=== PATIENT | female | born 1965 | race Caucasian/White ===

== ENCOUNTER → 2016-11-15 | Day surgery (SDC) | payer OTHER ==
[~2016-11-15] VITALS: Ht 172.7 cm; Wt 123.9 kg
[2016-11-15] VITALS (13 sets, daily range): BP systolic 113–155; BP diastolic 63–85; PULSE 65–77; RESP 13–21; O2SAT 90–97
[~2016-11-15] MED LIST: ASEN10TA9 SL; CeFAZolin 2 Gm/50 mL D5W IV Premix IV ONE; CeFAZolin Inj 3 Gm/ D5W 50 mL Bag IV ONE; DIAZ5TAB3 PO; Dexamethasone 4 mg/mL Inj IVPUSH PRN; Dexamethasone 4 mg/mL Inj ONE; EPHEDrine Sulfate 50 mg/mL Inj IVPUSH PRN; FENO160T14 PO; HYDROcodone-APAP 5-325 mg Tablet PO PRN; KETO10TA PO; KETO30VI IJ; KETO60SY IM; LAMO150T2 PO; LEVO125T6 PO; Lactated Ringer's 1,000 ML IV ONE; Lactated Ringer's 1,000 ML IV SCH; Lactated Ringer's 500 ML IV PRN; MAGN500C16 PO; MetoCLOpramide 5 mg/mL 2 mL Inj IVPUSH PRN; OMEP40CA36 PO; OXYC-466 PO; Ondansetron 2 mg/mL 2 mL Inj IVPUSH PRN; Ondansetron 2 mg/mL 2 mL Inj ONE; PRAM0.252 PO; PROP10TA8 PO; Phenazopyridine 97.5 mg Tablet ONE; Phenylephrine 10,000 mCg/mL Inj IVPUSH PRN; Propofol 10,000 mCg/mL 20 mL Inj ONE; RIZA10TA28 PO; SIMV20TA4 PO; fentaNYL-PF 50 mCg/mL 2 mL Inj IVPUSH PRN; fentaNYL-PF 50 mCg/mL 2 mL Inj ONE
--- NOTE | 2016-11-15 12:39 | PCM.HPANE ---
Patient Data Surgeon Admitting Provider: Attending Provider:Patito Antoine MD Primary Care Physician:Jenna Dowling PA-C Other Provider:Jesús Meade Anesthesia Reason for Visit Left Kidney Stone Ht/WT & BMI Height (Feet): 5 Height (Inches): 8.00 Weight (Kilograms): 123.9 Body Mass Index 41.00 Allergies Coded Allergies: bupropion (Verified Allergy, Severe, Hives, 11/08/16) Past Anesthesia History Anesthesia History: Positive for:: Anesthesia Reactions (Difficult to wake up from), Fam Anesthesia Reaction (mother has difficulty waking up as well ), Denies:: Abnormal Airway, Difficult Intubation Diabetes History Hx Diabetes?: No MRSA MRSA: No Medications Hypertension Medication: No Home Meds Incl Beta Jorge: Yes Date Beta Jorge Taken: Nov 14, 2016 Time Beta Jorge Taken: 1999 Reported Medications Simvastatin 20 Mg Jngebv02 Mg PO HS Ref 0 11/08/16 Asenapine (Saphris)10 Mg Tab.subl10 Mg SL DAILY 11/08/16 Rizatriptan ODT (Rizatriptan)10 Mg Pldjbj30 Mg PO Q2H PRN migraines not to qpmr7ew 30mg/24hrs 11/08/16 Propranolol HCl 10 Mg Aeozje53 Mg PO BID 90 Days Ref 0 11/08/16 oxyCODONE-Acetaminophen 10-325 mg 1 Each Tablet0.5-1 Tablet PO DAILY PRN For Pain Ref 0 11/08/16 Omeprazole 40 Mg Capsule.dr40 Mg PO DAILY Ref 0 11/08/16 Pramipexole Dihydrochloride (Mirapex)0.25 Mg Tablet0.75 Mg PO DAILY 11/08/16 Magnesium Oxide 500 Mg Izwkaos287 Mg PO DAILY 11/08/16 Levothyroxine 125 Mcg Pljhqg987 Mcg PO DAILY For Thyroid Replacement Ref 0 11/08/16 Lamotrigine 150 Mg Iwrybj234 Mg PO DAILY Ref 0 11/08/16 Ketorolac Tromethamine 10 Mg Fshgqc61 Mg PO Q8H PRN migraines 30 Days NTE 40mg/24hr 11/08/16 Fenofibrate 160 Mg Pftjgd752 Mg PO DAILY Ref 0 11/08/16 Diazepam 5 Mg Tablet5 Mg PO DAILY PRN For Anxiety Ref 0 11/08/16 Discontinued Reported Medications Ketorolac Tromethamine 60 Mg/2 Ml Syringe1-2 Ml IM ONCE PRN migraines up to 5 days total use 11/08/16 Ketorolac Tromethamine 30 Mg/1 Ml Vial1-2 Ml IJ ONCE PRN migraines up to 5 days total use 11/08/16 hydrOXYzine Hcl (HydrOXYzine Hcl)25 Mg Wjrivn92 Mg PO DAILY 09/03/[address] 20 Mg Tablet.dr20 Mg PO DAILY Ref 0 09/03/15 Ranitidine 300 Mg Gwxokzb539 Mg PO DAILY Ref 0 09/03/15 Rizatriptan ODT (Rizatriptan)5 Mg Tablet5 Mg PO 09/02/15 oxyCODONE-Acetaminophen 10-325 mg 1 Each Tablet1 Tablet PO DAILY PRN For Pain Ref 0 09/02/15 Ketorolac Tromethamine 10 Mg Nlzywh16 Mg PO 30 Days 09/02/15 Tramadol 50 Mg Afxwhk21 Mg PO Q6 PRN For Headache Ref 0 01/15/14 Topiramate (Topamax)25 Mg Clncqx49 Mg PO TID 30 Days Ref 0 01/15/14 Sumatriptan Succinate 100 Mg Mcadtn906 Mg PO PRN PRN For Headache 01/15/14 Diazepam 5 Mg Tablet5 Mg PO DAILY PRN For Anxiety #90 TABLET Ref 0 01/15/14 Levothyroxine 125 Mcg Uovvau179 Mcg PO DAILY For Thyroid Replacement #30 TABLET Ref 0 01/15/14 Simvastatin 20 Mg Aursxx74 Mg PO HS 30 Days Ref 0 01/15/14 Fenofibrate 160 Mg Suetti020 Mg PO DAILY 30 Days Ref 0 01/15/14 Lamotrigine 150 Mg Xxiqnj430 Mg PO DAILY #30 TABLET Ref 0 01/15/14 Asenapine (Saphris)10 Mg Tab.subl10 Mg SL DAILY 01/15/14 History History of ENT Problems?: Yes HEENT History: Positive for:: 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 ) Denies:: Abnormal Airway Cataracts Difficult Intubation Dysphagia Glaucoma Hearing Problem Sinus Problem Denture Type: None Teeth Condition: Within Normal Limits Hx of Heart Problems?: No Cardiovascular History: Denies:: Cardiac Surgery Chest Pain Congestive Heart Failure Edema Heart Murmur Hypertension Irregular Heartbeat Hx of Respiratory Problem?: No Respiratory History: Denies:: Asthma COPD Emphysema Oxygen Administration Pneumonia Pulmonary Embolism Tuberculosis Use of C-PAP Machine Hx Neurologic Problems?: Yes Neurological History: Positive for:: Headaches (hx of botox injections- q 12 weeks, last 2 mons ago) Denies:: CVA Dementia Dizziness Multiple Sclerosis Parkinson's Disease (benign essential tremors ) Seizures Hx of GI Problems?: Yes Hx of Problems?: Yes Genitourinary History: Positive for:: Kidney Stones (left stone current admission problem) Denies:: Urinary Tract Infection Female Hx: Denies:: Currently Problems with Breasts? Skin History: Denies:: History Skin Disorders? Pressure Ulcers Hx Musculoskeletal Problems?: Yes Musculoskeletal History: Denies:: Back Injury Fibromyalgia Joint Replacement Musculoskeletal Trauma Myasthenia Gravis Osteoarthritis Rheumatoid Arthritis Systemic Lupus Hx of Psycho/Social Problems?: Yes Psycho Social History: Positive for:: Anxiety Hx Depression Denies:: Suicide Attempt Hx Surgeries?: Yes (hysterectomy) Hx Any Other Health Problems?: Yes Other History: Positive for:: Cancer (Cervical CA currently undergoing chemo Carbo/cisplatin) Hospitalization Thyroid Disease History Blood Transfusions: Positive for:: Accept Blood Products? Blood Transfusions (when she had cancer - ) Denies:: Blood Transfuse Reaction Hx Diabetes: No Hx Alcohol Use: NoHx Substance Use: No Smoking Status: Former Smoker Have You Smoked inLast 12 mo: Yes Stop/Bang S-Snoring: Do You Snore Loudly: No T-Tired: feel tired, fatigued: Yes O-Obsered: Observed not breath: No P-Blood Pressure: treated: No B- Body Mass Index > 35 kg/m2: No A- Age over 50: Yes N- Neck Large Circumference: No G- Gender Male: No EFRAIN Total Score: 2 Risk Assessment Category Category 1A: Patient has history of documented sleep apnea, and HAS NOT received any narcotic, sedative or anesthesia administration during this stay. Category 1B: Patient has history of documented sleep apnea, and HAS received any narcotic , sedative or anesthesia administration during this stay Category 2: Patient has SUSPECTED Obstructive Sleep Apnea, and HAS received any narcotic , sedative or anesthesia administration during this stay. Category 3: Patient has SUSPECTED Obstructive Sleep Apnea and HAS NOT received narcotic, sedative or anesthesia administration during this stay. Category 4: Outpatient in Procedural Areas with known sleep apnea or who screen positive for High Risk via the STOP/BANG questionnaire. Exam Exam Vital Signs Vital Signs Date Time Temp Pulse Resp B/P Pulse Ox O2 Delivery O2 Flow Rate FiO2 11/15/16 11:30 35.5 65 18 133/79 97 Room Air General Appearance: Alert, Oriented X3, Cooperative, No Acute Distress HEENT/AIRWAY: MP 2 Lungs: Normal Air Movement Heart: Regular Rate/Rhythm Meds/Labs/Diagnostics Admission Meds Current Medications Lactated Ringer's (Lr) 1,000 ml @ 120 mls/hr Q8H20M ONCE IV Last administered on 11/15/16t 10:50; Start 11/15/16 at 05:00; Stop 11/15/16 at 13:19 Plan Impression Patient chart reviewed, patient interviewed and anesthestic plan with risks, benefits, and alternatives discussed, and informed consent obtained. NPO per Anesth. Guidelines: Yes ASA Physical Status: ASA3 Severe Disease Anesthetic Plan: GA Bene/Risks/Altern/Consents: Yes HP Complete Prior to Induction: Yes Hitesh Rodarte MD Nov 15, 2016 12:39
[2016-11-15] MEDS: HYDROmorphone 1 mg/mL Inj IVPUSH PRN ×2 (14:05→14:20)
--- NOTE | 2016-11-15 15:23 | PCM.ANEP1 ---
Post Anesthesia PACU Phase 1 Assessment Vital Signs Vital Signs Date Time Temp Pulse Resp B/P Pulse Ox O2 Delivery O2 Flow Rate FiO2 11/15/16 15:12 16 94 Room Air 11/15/16 15:01 36.4 74 17 118/75 94 Nasal Cannula 4 11/15/16 14:55 36.4 71 16 136/65 93 Nasal Cannula 4 11/15/16 14:50 72 17 129/73 93 Nasal Cannula 4 11/15/16 14:35 70 14 136/85 94 Nasal Cannula 4 11/15/16 14:20 66 21 141/74 94 Nasal Cannula 4 11/15/16 14:10 36.5 66 16 125/63 95 Nasal Cannula 4 11/15/16 14:05 71 14 135/74 92 Nasal Cannula 4 11/15/16 14:00 70 13 155/85 92 Nasal Cannula 2 11/15/16 13:55 69 14 146/79 91 Room Air 11/15/16 13:53 36.5 70 21 144/82 90 Room Air 11/15/16 11:30 35.5 65 18 133/79 97 Room Air Anesthetic Administered: GA Level of Alertness: Awake, talking Pain: No Nausea or Vomiting: No CV Function & Hydration Stable: Yes Airway Device: None Oxygen Delivery: Room Air Lungs: Normal Air Movement PACU Phase 2 Assessment Complications: No Follow up Care: N/A Patient Instructions Provided: N/A Hitesh Rodarte MD Nov 15, 2016 15:23
--- NOTE | 2016-11-15 15:42 | DRSVH ---
PROCEDURE: X-RAY RETROGRADE UROGRAPHY INDICATIONS: C-ARM ASSISTED LEFT STENT PLACEMENT TECHNIQUE: 2 intra-operative images acquired by the Urology service. COMPARISON: [facility], CT, ABDOMEN/PELVIS WITH CONTRAST, 10/19/2016, 19:15. FINDINGS: Exam is limited to to submitted images and there is only partial opacification of the visu alized portions of the distal left ureter. Surgical clips and left hemipelvis calcifications are pre sent. Ureteral stent was placed. IMPRESSION: 1. Limited examination as only a small portion of the distal left ureter has been opacified. Correla te with real-time exam. 2. Ureteral stent placement. Dictated by: Zbigniew HAMMOND Interpreted: Jillian Roth MD on 11/15/2016 at 15:38 Transcribed by: JAIR on 11/15/2016 at 15:42 Approved by: Jillian Roth M.D. on 11/15/2016 at 16:15
--- NOTE | 2016-11-15 21:05 | OP ---
[address] [address] OPERATIVE REPORT PATIENT: XOCHILT WHITE : 1965 MR#: [id number] ADMIT: 11/15/2016 JOB ID: [id number] DATE OF SURGERY: 11/15/2016 PREOPERATIVE DIAGNOSIS(ES): Left ureteral stone. POSTOPERATIVE DIAGNOSIS(ES): Left ureteral stone. PROCEDURE PERFORMED: 1. Cystoscopy and left retrograde pyelogram. 2. Left ureteroscopy with laser lithotripsy and stone basketing. 3. Left ureteral stent placement. SURGEON: Patito Antoine MD. ORCHARDIST: None. FINDINGS: Left distal ureteral stone, porous, approximately 3 mm. ANESTHESIA: General. ESTIMATED BLOOD LOSS: 1 mL. SPECIMENS: Left ureteral stone. COMPLICATIONS: None. CONDITION: Stable. INDICATION FOR PROCEDURE: The patient is a 51-year-old woman with a left ureteral stone. She wished to undergo the aforementioned procedure. DESCRIPTION OF PROCEDURE: After informed consent was obtained, patient was taken to the operating room. A time-out was performed identifying correct patient, surgical site, and procedure. General anesthesia was smoothly induced. She was placed in the lithotomy position and all pressure points were identified and appropriately padded. Her genitals were then prepped and draped in the usual sterile fashion. A 22-Mongolian rigid cystoscope was applied to the patient's urethra and advanced into the bladder. The bladder was drained. The left ureteral orifice was cannulated with a 5-Mongolian open-ended Pollack catheter. Retrograde pyelogram was performed. There appeared to be some resistance to contrast at the distal ureter consistent with a stone. Two Sensor tip wires were then navigated into the left renal pelvis as seen under fluoroscopy in succession. A semi-rigid ureteroscope was then used to navigate the distal ureter. There was eventually seen a stone consistent with the CT findings. A 273 micron laser FiberWire was used to break the stone into small pieces. A tipless basket was used to basket the stone fragments and these were sent off to the pathologist as left ureteral stone. The ureteroscope was then removed under direct vision. The remaining Sensor tip wire was then backloaded into the cystoscope and a 6 x 26 double-J ureteral stent was loaded over it and advanced into the left renal pelvis as seen under fluoroscopy. The wire was then removed leaving a nice coil in the patient's bladder as seen under direct vision. The bladder was drained. The patient was then reversed from general anesthesia and taken to PACU in good and stable condition. DILAN
[2016-11-18 14:10] LABS: Stone Color Tan (.)
== END | disposition home or self-care (01) ==
LOC: SAS 10:46
PROVIDERS: ATTEND Urology
DX: N20.1 Calculus of ureter (principal); F41.8 Other specified anxiety disorders; M54.2 Cervicalgia; E66.01 Morbid (severe) obesity due to excess calories; Z86.69 Personal history of other diseases of the nervous system and sense organs; Z85.41 Personal history of malignant neoplasm of cervix uteri; Z68.41 Body mass index [BMI] 40.0-44.9, adult; Z87.891 Personal history of nicotine dependence
CPT/HCPCS: 52356; 74420; 82360; C2617; J0690; J1100; J1170; J2250; J2270; J2405; J2704; J3010; J7120; Q9967